=== PATIENT | female | born 1975 | race Caucasian/White ===

== ENCOUNTER 2019-03-08 01:23 | Emergency (ER) | payer BC ==
[~2019-03-08] VITALS: Ht 160 cm; Wt 56.7 kg
[2019-03-08 01:27] VITALS: BP 184/95
[2019-03-08] MEDS ORDERED: NORCO 5-325 TA1 EAC1 PO (02:00)
[2019-03-08] MEDS ORDERED: PREDNISONE 20 M20 M1 PO (02:00)
== END 2019-03-08 02:02 | disposition home or self-care (01) ==
LOC: M.ERS 01:23
DX: M25.531 Pain in right wrist (principal); M25.532 Pain in left wrist